=== PATIENT | male | born 1995 | race Caucasian/White ===

== ENCOUNTER 2023-03-22 18:09 | Emergency (ER) | payer SELFPAY ==
[~2023-03-22] VITALS: Ht 167.6 cm; Wt 70.5 kg
[~2023-03-22 18:09] MED LIST: AMOXICILLIN 8751 TAB PO; MOTRIN 600600 MG/TAB PO; NORCO 325 MG-51 TAB PO
[2023-03-22 18:15] VITALS: TEMP 99.2
[2023-03-22 18:56] LABS: BASO # 0.1 K/mm3 (0.0-0.2); BASO % 0.9 % (0.0-2.0); EOS # 0.2 K/mm3 (0.0-0.7); EOS % 2.5 % (0.0-4.0); GRAN # 3.9 K/mm3 (1.4-6.5); GRAN % 58.5 % (42.2-75.2); HEMATOCRIT 46.4 % (42.0-52.0); HEMOGLOBIN 15.1 g/dl (13.5-18.0); LYMPH # 1.9 K/mm3 (1.2-3.4); LYMPH % 28.5 % (20.0-51.0); MEAN CELL VOLUME 86 fl (80.0-100.0); MEAN CORPUSCULAR HEMOGLOBIN 28 pg (27-31); MEAN CORPUSCULAR HGB CONC 33 g/dl (33.0-37.0); MONO # 0.6 K/mm3 (0.1-0.6); MONO % 9.3 % (1.7-9.3); PLATELET COUNT 191 K/mm3 (130-400); RED BLOOD COUNT 5.37 M/mm3 (4.20-5.60); REDCELL DISTRIBUTION WIDTH-CV 12.5 % (11.5-14.5)
[2023-03-22 19:00] VITALS: BP 119/77
[2023-03-22 19:08] LABS: BILIRUBIN,TOTAL 0.2 mg/dL (0.2-1.2); CALCIUM 9.7 mg/dL (8.4-10.2); CREATININE, serum 0.98 mg/dL (0.72-1.25); POTASSIUM 3.8 mmol/L (3.5-4.5); TOTAL PROTEIN 6.9 gm/dL (6.2-8.1)
[2023-03-22 19:53] VITALS: PULSE 70
== END 2023-03-22 19:53 | disposition home or self-care (01) ==
LOC: COL.ER 18:09
PROVIDERS: Personal Emergency Response Attendant
DX: R07.89 Other chest pain (principal)
CPT/HCPCS: J1885; J7030; Q9967